=== PATIENT | male | born 1970 | race African-American/Black ===

== ENCOUNTER 2019-12-28 07:38 | Outpatient (CLI) | payer BC, OTHER ==
[2019-12-29 14:01] LABS: SARS-CoV-2 MS2 Positive; SARS-CoV-2 N Gene Negative; SARS-CoV-2 S Gene Negative; SARS-CoV-2 by NAA Not Detected (NotDetected); SARS-CoV-2 orf1ab Negative
== END 2019-12-28 07:39 | disposition home or self-care (01) ==
LOC: LABBT 07:38
PROVIDERS: ATTEND Ophthalmology Retina Specialist
DX: H33.04 Retinal detachment with retinal dialysis (principal); Z20.828 Contact with and (suspected) exposure to other viral communicable diseases
CPT/HCPCS: 87635; U0003